=== PATIENT | male | born 1945 | race Caucasian/White ===

== ENCOUNTER 2018-12-23 12:47 | Emergency (ER) | payer MEDICARE, OTHER ==
--- NOTE | 2018-12-23 13:17 | Emergency Department Record ---
History of Present Illness - General Chief Complaint: Arrythmia/Palpitations Stated Complaint: A-FIB Time Seen by Provider: 12/23/18 12:51 Source: Patient Mode of Arrival: Stretcher Limitations: No limitations - History of Present Illness Initial Comments: The patient is here due to being in the PACU before surgery and found to be in Afib and Hypertensive. The patient does have a hx of both and is on Warfarin and HTN meds but only took his Sotolol this AM. He denies any pain, SOB, or dizziness. The patient's BP was very high in the PACU but now is back to normal. Complaint: Atrial fibrillation Onset/Timin -: Minutes(s) Arrythmia History: Atrial fibrillation Associated Symptoms: Denies other symptoms - Related Data Allergies Allergy/AdvReac Type Severity Reaction Status Date / Time codeine AdvReac MISSAELCOUGHS Verified 12/23/18 13:08 Travel Screening - Travel/Exposure Within Last 30 Days Have you traveled within the last 30 days?: No Review of Systems Constitutional: Denies: Chills, Fever Eyes: Denies: Eye discharge ENT: Denies: Congestion Respiratory: Denies: Cough, Dyspnea Cardiovascular: Denies: Arrhythmia, Chest pain Endocrine: Denies: Fatigue Gastrointestinal: Denies: Nausea Genitourinary: Denies: Dysuria Musculoskeletal: Denies: Arthralgia Skin: Denies: Bruising Past Medical History - SOCIAL HISTORY Smoking Status: Former smoker Alcohol Use: None Drug Use: None - RESPIRATORY Hx Respiratory Disorders: Yes Hx Asthma: Yes (R/T ALLERGIES HAS BEEN USING INHALERS LATELY BUT CONTROLLED) - CARDIOVASCULAR Hx Cardio Disorders: Yes Hx Abnormal EKG: Yes Hx Cardiac Cath: Yes Hx Hypertension: Yes (ON MEDS GOOD CONTROL) Hx Irregular Heartbeat: Yes (HX A FIB DX'D 2016) Hx Coronary Artery Disease: Yes Hx Coronary Stent: Yes (2017) Comment:: HYPERLIPIDEMIA ACTIVITY DOWN D/T KNEE WAS VERY ACTIVE PREVIOUSLY - NEURO Hx Neuro Disorders: No - GI Hx GI Disorders: Yes Hx Reflux: Yes (OCCASSIONALLY FOOD RELATED) - Hx Genitourinary Disorders: No - ENDOCRINE Hx Endocrine Disorders: No - MUSCULOSKELETAL Hx Musculoskeletal Disorders: Yes Hx Arthritis: Yes (" A TOUCH") - PSYCH Hx Psych Problems: No - HEMATOLOGY/ONCOLOGY Hx Hematology/Oncology Disorders: Yes Hx Bruising: Yes (ON BLOOD THINNERS) Hx Clotting Problems: Yes (ON BLOOD THINNERS) Family Medical History Any Significant Family History?: Yes Family Hx Comment (NOT TO BE USED IN PLACE OF ITEMS BELOW): MOM MVA AGE 48 Hx Heart Disease: Father *Heart Comment: DAD BROKEN HEART SYNDROME 50 Physical Exam - General General Appearance: Alert, Oriented x3, Cooperative, No acute distress - Head Head exam: Atraumatic, Normocephalic, Normal inspection - Eye Eye exam: Normal appearance, PERRL - Neck Neck exam: Normal inspection, Full ROM. negative: Tenderness - Respiratory Respiratory exam: Normal lung sounds bilaterally. negative: Respiratory distress - Cardiovascular Cardiovascular Exam: Irregular rhythm. negative: Regular rate, Normal rhythm - GI/Abdominal GI/Abdominal exam: Soft, Normal bowel sounds. negative: Tenderness - Extremities Extremities exam: Normal inspection, Full ROM, Normal capillary refill. negative: Tenderness - Back Back exam: Reports: Normal inspection - Neurological Neurological exam: Alert, Normal gait. negative: Abnormal gait, Motor sensory deficit Course Vital Signs 12/23/18 13:08 Pulse Rate 101 H Respiratory 18 Rate Blood Pressure 127/99 Pulse Ox 98 - Reevaluation(s) Reevaluation #1: The pateint was seen by Dr. Church in the ER and was cleared for discharge. He would like his Sotolol bumped up to 120 mg BID and for the patient to restart the Warfarin. 12/23/18 13:16 Reevaluation #2: The patient is doing very well at this time. He has no pain or discomfort and his BP has been stable. The patient's HR has been < 100 and he appears very stable for discharge. 12/23/18 14:09 Medical Decision Making - Data Complexity MDM Data: Labs Ordered and/or Reviewed, EKG Ordered and/or Reviewed - Lab Data Result diagrams: 12/23/18 13:28 12/23/18 13:28 - EKG Data -: EKG Interpreted by Me (Afib at 110. Nonspecific ST-T changes.) Disposition Disposition: Discharge Clinical Impression: A-fib Qualifiers: Atrial fibrillation type: unspecified Qualified Code(s): I48.91 - Unspecified atrial fibrillation Disposition: Home, Self-Care Condition: (2) Stable Instructions: Heart Palpitations (ED) Additional Instructions: Please take a double dose of Coumadin for one day then back to your normal dose. Please increase your Sotolol per Dr. Church. Stop the Plavix. Please see Dr. Church next week for recheck. Return to the ER for any problems or issues. Forms: Patient Portal Access Time of Disposition: 14:08 Quality - Quality Measures Quality Measures: N/A - Blood Pressure Screening View Details: Yes Does Patient Have Any of the Following: Active Dx of HTN Blood Pressure Classification: Hypertensive Reading Systolic Measurement: 127 Diastolic Measurement: 99 Screening for High Blood Pressure: Patient Exclusion, Hx of HTN [[id number]]
[2018-12-23 13:42] LABS: ABSOLUTE NEUTROPHIL COUNT 3.57; BASO % 0.5 % (0-6); EOS % 2.6 % (0-6); GRAN % 57.9 % (47-80); HEMATOCRIT 39.1 % (42.0-52.0); HEMOGLOBIN 13.2 gm/dl (14.0-18.0); LYMPH % 26.3 % (16-45); MEAN CELL VOLUME 91.6 fl (81-97); MEAN CORPUSCULAR HEMOGLOBIN 30.9 pg (27-33); MEAN CORPUSCULAR HGB CONC 33.8 g/dl (32-36); MEAN PLATELET VOLUME 10.8 fl (7.4-10.4); MONO % 12.7 % (0-9); PLATELET COUNT 173 K/uL (130-400); RED BLOOD COUNT 4.27 M/uL (4.40-5.70); RED CELL DISTRIBUTION WIDTH 13.6 % (11.5-14.5); WHITE BLOOD COUNT W/O DIFF 6.2 K/uL (4.2-12.2)
[2018-12-23 13:47] LABS: BLOOD UREA NITROGEN 18 mg/dL (8-23); CREATININE 0.7 mg/dL (0.7-1.2); EST GLOMERULAR FILTRATION RATE > 60 mL/min; TOTAL PROTEIN 6.5 g/dL (6.6-8.7)
[2018-12-23 13:49] LABS: GLUCOSE,RANDOM 118 mg/dL (74-109)
[2018-12-23 13:50] LABS: INR 1.1; PARTIAL THROMBOPLASTIN TIME 27.2 SECONDS (24.5-39.1); PROTHROMBIN TIME (PATIENT) 11.1 SECONDS (9.5-12.1)
[2018-12-23 13:52] LABS: ALB/GLOB RATIO 1.6 (1.1-1.8); ALKALINE PHOSPHATASE 53 U/L (40-129); ALT/SGPT 25 U/L (<41); AST/SGOT 20 U/L (10.0-50.0)
[2018-12-23] MEDS ORDERED: ENOXAPARIN 100 MG/ML SYR SQ ONE (13:57)
== END 2018-12-23 14:20 | disposition home or self-care (01) ==
LOC: ER 12:47
DX: I48.91 Unspecified atrial fibrillation (principal); I10 Essential (primary) hypertension; Z87.891 Personal history of nicotine dependence; Z79.01 Long term (current) use of anticoagulants
CPT/HCPCS: 80053; 84484; 85025; 85610; 85730; 93005; 93010; J1650

== ENCOUNTER → 2018-12-23 | Day surgery (SDC) | payer MEDICARE, OTHER ==
[~2018-12-23] MED LIST: ACETAMINOPHEN 1,000 MG/100 ML BTL IVPB ONE; CEFAZOLIN 1G VIAL IVP ONE; CEFAZOLIN 2 Gram 2 GM/50 ML BAG IVPB ONE; LABETALOL HCL 5MG/ML, 20ML VIAL IV ONE; METOPROLOL TART 5 MG/5 ML VIAL IV ONE; RINGERS SOLUTION,LACTATED 1,000 ML IV ONE; WATER STERILE FOR INJECTION 20 ML VIAL IV ONE
[2018-12-23 11:02] LABS: BASO % 0.5 % (0-6); EOS % 2.6 % (0-6); GRAN % 57.6 % (47-80); HEMATOCRIT 42.4 % (42.0-52.0); HEMOGLOBIN 14.6 gm/dl (14.0-18.0); MEAN CELL VOLUME 90.8 fl (81-97); MEAN CORPUSCULAR HEMOGLOBIN 31.3 pg (27-33); MEAN CORPUSCULAR HGB CONC 34.4 g/dl (32-36); MONO % 13.3 % (0-9); PLATELET COUNT 199 K/uL (130-400); RED BLOOD COUNT 4.67 M/uL (4.40-5.70); RED CELL DISTRIBUTION WIDTH 13.8 % (11.5-14.5); WHITE BLOOD COUNT W/O DIFF 7.6 K/uL (4.2-12.2)
[2018-12-23 11:09] LABS: INR 1.1; PROTHROMBIN TIME (PATIENT) 10.7 SECONDS (9.5-12.1)
[2018-12-23 11:10] LABS: BLOOD UREA NITROGEN 19 mg/dL (8-23); CREATININE 0.7 mg/dL (0.7-1.2); EST GLOMERULAR FILTRATION RATE > 60 mL/min; GLUCOSE,RANDOM 135 mg/dL (74-109)
== END | disposition home or self-care (01) ==
LOC: SUR 09:59
PROVIDERS: ATTEND Orthopaedic Surgery
DX: I48.91 Unspecified atrial fibrillation (principal); I10 Essential (primary) hypertension; Z79.01 Long term (current) use of anticoagulants; Z87.891 Personal history of nicotine dependence; Z53.8 Procedure and treatment not carried out for other reasons
CPT/HCPCS: 80048; 80053; 84484; 85025; 85610; 85730; 93005; 93010; 96372; 99283; J0690; J1650; J7120

== ENCOUNTER 2019-03-22 06:38 | Day surgery (SDC) | payer MEDICARE, OTHER ==
[~2019-03-22 06:38] MED LIST changes: -CEFAZOLIN 1G VIAL IVP ONE; +FAMOTIDINE 20MG TABLET PO ONE; -LABETALOL HCL 5MG/ML, 20ML VIAL IV ONE; +METOCLOPRAMIDE 10 MG TABLET PO ONE; -METOPROLOL TART 5 MG/5 ML VIAL IV ONE; -RINGERS SOLUTION,LACTATED 1,000 ML IV ONE; -WATER STERILE FOR INJECTION 20 ML VIAL IV ONE
[2019-03-22] MEDS ORDERED: KETOROLAC 30 MG/ML VIAL IVP ONE (06:39)
[2019-03-22] MEDS ORDERED: LIDOCAINE 2% MDV (20MG/ML) 20ML VIAL IV ONE (06:39)
[2019-03-22] MEDS ORDERED: MIDAZOLAM HCL 2MG/2ML VIAL IV ONE (06:39)
[2019-03-22] MEDS ORDERED: FENTANYL PF 100MCG/2ML VIAL IV ONE (06:39)
[2019-03-22] MEDS ORDERED: SEVOFLURANE 250 ML INH ONE (06:39)
[2019-03-22] MEDS ORDERED: PROPOFOL 10 MG/ML VIAL IV ONE (06:39)
[2019-03-22] MEDS ORDERED: ONDANSETRON HCL IV 4 MG/2 ML VIAL IVP ONE (06:39)
[2019-03-22] MEDS ORDERED: RINGERS SOLUTION,LACTATED 1,000 ML IV ONE ×2 (07:40→09:10)
[2019-03-22] MEDS ORDERED: BUPIVACAINE 0.25% W/EPI MPF 30ML VIAL SQ ONE (09:17)
--- NOTE | 2019-03-22 15:30 | Operative Note ---
DATE OF SURGERY: 03/22/2019 SURGEON: Gian Martinez DO PREOPERATIVE DIAGNOSIS: Torn medial meniscus of the right knee. POSTOPERATIVE DIAGNOSES: 1. Torn medial meniscus of right knee. 2. Medial mid patella plica right knee. 3. 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 OPERATION: 1. Arthroscopic partial medial meniscectomy, right knee. 2. Arthroscopic resection of medial mid patella plica, right knee. 3. Arthroscopic chondroplasty of the lateral femoral condyle and patella and trochlea, right knee. DESCRIPTION OF PROCEDURE: This 72-year-old male was taken to the operating room and placed in the supine position on the operating room table where general anesthetic was administered. The right lower extremity was elevated, exsanguinated, and the tourniquet inflated to 300 mmHg. Arthroscopic knee dee applied. Right knee prepped with Hibiclens and draped in the usual sterile fashion. An inferolateral portal was established for the 4 mm arthroscope, and initial evaluation of the joint demonstrated normal appearance of the suprapatellar pouch but a medial mid patella plica was present as well as grade 3 chondromalacia of the patellofemoral articulation. Probing revealed gross instability and flaps of the articular cartilage of the patella, and these were resected with a rotating shaver. There was thickening and fibrosis of the medial mid patella plica which was also resected. The patellofemoral articulation was re-probed and the articular cartilage confirmed to be stable. The medial compartment was entered, and a flap tear with horizontal cleavage component was identified in the posterior horn and body of medial meniscus with the apex of the tear being at approximately the 2-o'clock position. This was very near the meniscosynovial junction. Utilizing the basket forceps and rotating shaver, we were able to resect unstable fragments of the meniscus. It was necessary for us to place the scope in the medial component to better visualize the body of the meniscus, and this was trimmed and smoothed and contoured and found to be stable. The intracondylar notch was examined and found to be normal. The lateral compartment was entered, and significant grade 2 chondromalacia of the lateral femoral condyle was present with almost the entire weightbearing surface being evaluated. The lateral meniscus demonstrates some superficial fraying but no mynor tear of the lateral meniscus was identified. The joint was copiously irrigated and suctioned. The instruments were removed. The portals infiltrated with 0.25% Marcaine with epinephrine. Sterile dressings applied, tourniquet and knee dee released, and the patient taken to the recovery room in satisfactory condition. GROSS PATHOLOGY: This patient demonstrated a complex tear of the posterior horn of the medial meniscus. There was also grade 3 chondromalacia of the patellofemoral articulation and medial mid patella plica. Some minimal fraying of the lateral meniscus. There was grade 2 chondromalacia of the entire weightbearing surface of the lateral femoral condyle. MTDD
== END 2019-03-22 10:30 | disposition home or self-care (01) ==
LOC: SUR 06:38
PROVIDERS: ATTEND Orthopaedic Surgery
DX: S83.241A Other tear of medial meniscus, current injury, right knee, initial encounter (principal); M67.51 Plica syndrome, right knee; M94.261 Chondromalacia, right knee; I48.91 Unspecified atrial fibrillation; Z79.01 Long term (current) use of anticoagulants; I10 Essential (primary) hypertension; E78.00 Pure hypercholesterolemia, unspecified; J45.909 Unspecified asthma, uncomplicated
CPT/HCPCS: 29881; 01400; J1885; J2405; J3010; J0690; J7120